=== PATIENT | female | born 1935 | race Caucasian/White ===

== ENCOUNTER 2017-07-13 10:38 | Emergency (ER) | payer OTHER ==
[2017-07-13 10:53] VITALS: BP 130/75; PULSE 86; TEMP 98.4; BMI 24.1
--- NOTE | 2017-07-13 11:40 | PDOC ---
History of Present Illness - History of Present Illness Initial Comments: 07/13/17 13:12 The patient is a 82 year old female, with a significant past medical history of chronic low back pain, who presents to the emergency department with complaint of increasing chronic low back pain and new onset of left flank pain today. She reports having injections for her back pain with Dr. Amanda which offered her minimal pain relief. She denies chest pain, shortness of breath, headache and dizziness. She denies fever, chills, nausea, vomit, diarrhea and constipation. She denies dysuria, frequency, urgency and hematuria. Allergies: NKDA Past surgical history: none reported Social history: denies toxic habits <Kacey Macias - Last Filed: 07/13/17 13:11> <Kirstie Chester - Last Filed: 07/13/17 14:34> - General Chief Complaint: Back Pain Stated Complaint: RT SIDE PAIN Time Seen by Provider: 07/13/17 11:40 Past History <Kacey Macias - Last Filed: 07/13/17 13:11> - Past Medical History Asthma: Yes HTN: Yes Suicide Attempt (Hx): No - Immunization History Immunization Up to Date: Yes - Psycho/Social/Smoking Cessation Hx Anxiety: No Suicidal Ideation: No Smoking History: Never smoked Have you smoked in the past 12 months: No Information on smoking cessation initiated: No Hx Alcohol Use: No Drug/Substance Use Hx: No Substance Use Type: None <Kirstie Chester - Last Filed: 07/13/17 14:34> - Past Medical History Allergies/Adverse Reactions: Allergies Allergy/AdvReac Type Severity Reaction Status Date / Time No Known Allergies Allergy Verified 07/13/17 10:46 Home Medications: Ambulatory Orders NK [No Known Home Medication] 02/01/16 Review of Systems - Review of Systems Able to Perform ROS?: Yes Comments:: 07/13/17 13:12 GENERAL/CONSTITUTIONAL: No fever or chills. No weakness. HEAD, EYES, EARS, NOSE AND THROAT: No change in vision. No ear pain or discharge. No sore throat. CARDIOVASCULAR: No chest pain or shortness of breath. RESPIRATORY: No cough, wheezing, or hemoptysis. GASTROINTESTINAL: No nausea, vomiting, diarrhea or constipation. GENITOURINARY: (+) left flank pain. No dysuria, frequency, or change in urination. MUSCULOSKELETAL: (+) low back pain. No joint or muscle swelling or pain. No neck pain. SKIN: No rash NEUROLOGIC: No headache, vertigo, loss of consciousness, or change in strength/ sensation. ENDOCRINE: No increased thirst. No abnormal weight change. HEMATOLOGIC/LYMPHATIC: No anemia, easy bleeding, or history of blood clots. ALLERGIC/IMMUNOLOGIC: No hives or skin allergy. <Kacey Macias - Last Filed: 07/13/17 13:11> *Physical Exam - Vital Signs Last Vital Signs Temp Pulse Resp BP Pulse Ox 98.4 F 86 16 130/75 98 07/13/17 10:48 07/13/17 10:48 07/13/17 10:48 07/13/17 10:48 07/13/17 10:48 - Physical Exam Comments: 07/13/17 13:13 GENERAL: Awake, alert, and fully oriented, in no acute distress HEAD: No signs of trauma EYES: PERRLA, EOMI, sclera anicteric, conjunctiva clear ENT: Auricles normal inspection, hearing grossly normal, nares patent, oropharynx clear without exudates. Moist mucosa NECK: Normal ROM, supple, no lymphadenopathy, JVD, or masses LUNGS: Breath sounds equal, clear to auscultation bilaterally. No wheezes, and no crackles HEART: Regular rate and rhythm, normal S1 and S2, no murmurs, rubs or gallops ABDOMEN: Soft, nontender, normoactive bowel sounds. No guarding, no rebound. No masses EXTREMITIES: Normal range of motion, no edema. No clubbing or cyanosis. No cords, erythema, or tenderness NEUROLOGICAL: Cranial nerves II through XII grossly intact. Normal speech, normal gait SKIN: Warm, Dry, normal turgor, no rashes or lesions noted. <Kacey Macias - Last Filed: 07/13/17 13:11> - Vital Signs Last Vital Signs Temp Pulse Resp BP Pulse Ox 98.4 F 86 16 130/75 98 07/13/17 10:48 07/13/17 10:48 07/13/17 10:48 07/13/17 10:48 07/13/17 10:48 <Kirstie Chester - Last Filed: 07/13/17 14:34> ED Treatment Course - Medications Given in the ED: ED Medications Discontinued Medications Generic Name Dose Route Start Last Admin Trade Name Tee PRN Reason Stop Dose Admin Oxycodone/Acetaminophen 1 combo 07/13/17 12:21 07/13/17 12:31 Percocet 5/325 - PO 07/13/17 12:22 1 combo ONCE ONE Administration <Kacey Macias - Last Filed: 07/13/17 13:11> Medical Decision Making - Medical Decision Making 07/13/17 14:32 Patient presents to the ED complaining of atraumatic L paraspinal back pain. DEnies flank pain or abdominal pain. Ambulatory in the ED. No neurologic complaints. Xrays are negative for acute findings. Will discharge home. <Kirstie Chester - Last Filed: 07/13/17 14:34> *DC/Admit/Observation/Transfer - Attestations Scribe Attestion: 07/13/17 13:13 Documentation prepared by Kacey Macias, acting as medical staff manager for Kirstie Chester MD, <Kacey Macias - Last Filed: 07/13/17 13:11> <Kirstie Chester - Last Filed: 07/13/17 14:34> Diagnosis at time of Disposition: Back pain Qualifiers: Back pain location: thoracic back pain Chronicity: acute Back pain laterality: left Qualified Code(s): M54.6 - Pain in thoracic spine - Referrals Referrals: Katya Amanda [Primary Care Provider] - - Patient Instructions Printed Discharge Instructions: DI for Low Back Pain Additional Instructions: return to the ED for weakness of the legs,severe pain, pain with fever, problems controlling your bowels or bladder.
== END 2017-07-13 14:52 | disposition home or self-care (01) ==
LOC: JER 10:38
DX: M54.6 Pain in thoracic spine (principal); G89.29 Other chronic pain
CPT/HCPCS: 72070-TC; 72100-TC; 99282-25

== ENCOUNTER 2022-02-06 17:27 | Emergency (ER) | payer OTHER ==
[2022-02-06] MEDS ORDERED: LIDOCAINE 5% TOPICAL PATCH TP ONE (18:17)
[2022-02-06] MEDS ORDERED: ACETAMINOPHEN 1000 MG/100 ML BAG IVPB ONE (18:17)
[2022-02-06] MEDS ORDERED: LIDOCAINE 5% TOPICAL PATCH ONE ×2 (18:29→22:46)
[2022-02-06] MEDS ORDERED: ACETAMINOPHEN 500 MG TABLET (FP) PO ONE (18:37)
[2022-02-06] MEDS ORDERED: ACETAMINOPHEN 325 MG TABLET (FP) ONE (18:41)
[2022-02-06 18:45] VITALS: BP 170/76; PULSE 73; TEMP 98; BMI 26.7
[2022-02-06] MEDS ORDERED: IBUPROFEN 400 MG TABLET (FP) PO ONE ×2 (22:33→22:46)
[2022-02-07] MEDS ORDERED: LIDOCAINE PATCH REMOVAL MC SCH (07:00)
== END 2022-02-06 23:30 | disposition home or self-care (01) ==
LOC: JER 17:27
DX: R07.9 Chest pain, unspecified (principal); W19.XXXA Unspecified fall, initial encounter
CPT/HCPCS: 70450-TC; 71250-TC; 72125-TC; 93005; 93010; 99284-25